=== PATIENT | female | born 2000 | race American Indian/Alaskan Native ===

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

== ENCOUNTER 2018-09-21 14:19 | Outpatient (CLI) | payer OTHER, MEDICAID ==
[2018-09-21 14:32] VITALS: BP 119/63
[2018-09-21] MEDS ORDERED: LACTATED RINGERS 1,000 ML ONE (15:04)
--- NOTE | 2018-09-21 15:16 | Event Note ---
18yo at 35 4/7 weeks be THADDEUS presented to L&D by EMS stating she was feliz and she was a known high risk due to breech presentation. When I arrived her mother confirmed her was complicated only by breech presentation. Her cervix was closed/70/posterior/firm/-3. A bedside sono was done and fetus was noted to be in VERTEX presentation. Ultrasound was reviewed with patient and mother. Ms. Deleon denies any vaginal bleeding or loss of fluid. She has occasional contractions and irritability on toco. She states the pain feels like tightening. Ms Deleon states she was told by Dr. Farias at [facility] that if she was stabilized she could be transferred to [facility] for delivery due to breech presentation. I explained to the patient and her mother that she was being evaluated for labor and if determined not be in labor she would be discharged home with labor precautions. She was given a bolus of fluid, UA sent for evaluation. Her cervix was rechecked in one hour and found to be closed.
[2018-09-21 15:40] LABS: Bacteria,Urine 1+ /HPF (Negative); Bilirubin,Urine NEG (Negative); Blood,Urine NEG (Negative); Color,Urine Yellow (Yellow); Protein,Urine <15 mg/dL mg/dL (Negative); RBC,Urine < 1.0 /HPF (0.0-6.0); Urobilinogen,Urine < 2.0 mg/dL (<2.0)
[2018-09-21 16:13] LABS: Amphetamine Screen,Urine PRESUMPTIVE NEGATIVE; Benzodiazepines Screen,Urine PRESUMPTIVE NEGATIVE; Cocaine Screen,Urine PRESUMPTIVE NEGATIVE; Methadone Screen,Urine PRESUMPTIVE NEGATIVE; Opiate Screen,Urine PRESUMPTIVE NEGATIVE
[2018-09-21 16:38] LABS: Cannabinoid Screen,Urine PRESUMPTIVE POSITIVE
== END 2018-09-21 16:47 | disposition home or self-care (01) ==
LOC: TRG 14:19
PROVIDERS: ATTEND Obstetrics & Gynecology
DX: O62.9 Abnormality of forces of labor, unspecified (principal); O32.1XX0 Maternal care for breech presentation, not applicable or unspecified; Z3A.36 36 weeks gestation of pregnancy
CPT/HCPCS: 80307; 81001; J7120

== ENCOUNTER 2020-04-11 18:23 | Emergency (ER) | payer MEDICAID, OTHER ==
[2020-04-11 18:52] VITALS: BP 141/83
--- NOTE | 2020-04-11 18:54 | Event Note ---
ED Screening Note ED Screening Note: pt presents for periumbilical abd pain began at 4PM today states it feels like intermittent sharp, stabbing +n/v normal BM today never had before no past abdominal surgeries no pmhx no allergies to meds LNMP a week ago This initial assessment/diagnostic orders/clinical plan/treatment(s) is/are subject to change based on patients health status, clinical progression and re- assessment by fellow clinical providers in the ED. Further treatment and workup at subsequent clinical providers discretion. Patient/guardian urged not to elope from the ED as their condition may be serious if not clinically assessed and managed. Initial orders include: labs, UA
[2020-04-11 19:19] LABS: Basophils % (Auto) 0.4 % (0.0-1.8); Eosinophils % (Auto) 0.4 % (0.0-4.3); Hematocrit 36.1 % (30.3-42.9); Hemoglobin 11.5 gm/dl (10.1-14.3); Lymphocytes # (Auto) 2.9 K/mm3 (1.2-5.4); Lymphocytes % (Auto) 45.5 % (13.4-35.0); Mean Corpuscular HGB Conc 32 % (30-34); Mean Corpuscular Volume 80 fl (79-97); Monocytes # (Auto) 0.5 K/mm3 (0.0-0.8); Monocytes % (Auto) 8.4 % (0.0-7.3); Platelet Count 257 K/mm3 (140-440); Red Blood Count 4.53 M/mm3 (3.65-5.03); Red Cell Distribution Width 16.8 % (13.2-15.2)
[2020-04-11 19:39] LABS: Alanine Aminotransferase 14 units/L (7-56); Albumin 4.1 g/dL (3.9-5); BUN/Creatinine Ratio 13; Blood Urea Nitrogen 9 mg/dL (7-17); Calcium 9.4 mg/dL (8.4-10.2); Hemolysis Index 0
[2020-04-11] MEDS ORDERED: MORPHINE 4 MG/1 ML INJ IV ONE (20:10)
[2020-04-11] MEDS ORDERED: ONDANSETRON 4 MG/2 ML INJ IV ONE (20:11)
[2020-04-11] MEDS ORDERED: KETOROLAC 30 MG/1 ML INJ IV ONE (20:11)
[2020-04-11] MEDS ORDERED: PANTOPRAZOLE 40 MG INJ IV ONE (20:11)
--- NOTE | 2020-04-11 20:44 | Cat Scan Report ---
CT abdomen pelvis w con INDICATION / CLINICAL INFORMATION: periumbilical abd pain, n/v. TECHNIQUE: All CT scans at this location are performed using CT dose reduction for ALARA by means of automated e xposure control. COMPARISON: None available. FINDINGS: No free fluid is seen in the abdomen. The liver is enlarged without focal abnormality. The spleen, ki dneys, pancreas, adrenal glands and great vessels are normal. No enlarged mesenteric or retroperitone al lymph nodes are identified. In the pelvis, no free fluid is seen. An umbilical hernia is present containing only fat. No enlarged lymph nodes are identified. The bladder is minimally distended. The appendix is normal. There is scl erosis on both sides of the sacroiliac joints.. IMPRESSION: 1. Small umbilical hernia containing only fat 2. Sclerosis on both sides of the sacroiliac joints 3. Enlarged liver without focal abnormality Signer Name: Boy Short MD FACR Signed: 04/11/2020 8:40 PM Workstation Name: [id number]
[2020-04-11 22:22] LABS: Bilirubin,Urine NEG (Negative); Blood,Urine SM (Negative); Color,Urine Yellow (Yellow); Mucus,Urine 2+ /HPF; Triple Phosphate Crystal,Urine 1+
--- NOTE | 2020-04-11 22:36 | Emergency Department Report ---
ED Abdominal Pain HPI - General Chief Complaint: Abdominal Pain Stated Complaint: VOMIT/STOMACH PAIN Time Seen by Provider: 04/11/20 18:53 Source: patient Mode of arrival: Ambulatory Limitations: No Limitations - History of Present Illness Initial Comments: CC: My stomach hurts." HPI: This is a 20-year-old female with past medical history of headache m igraine, bronchitis who presents with epigastric pain which began shortly after eating barbecue from a restaurant this afternoon. Patient had [employer] for breakfast. She has sharp achy intermittent crampy pain. Moderate in severity. No radiation. She denies fever vomiting diarrhea MD Complaint: abdominal pain -: Gradual, hour(s) (4 hours since 4 PM) Location: epigastric Radiation: none Migration to: no migration Severity: moderate Severity scale (0 -10): 10 Quality: cramping, aching Consistency: intermittent Improves With: nothing Worsens With: nothing Context: possible food poisoning Associated Symptoms: denies other symptoms - Related Data Previous Rx's Medication Instructions Recorded Last Taken Type Butalb/Acetaminophen/Caffeine 1 cap PO Q8HR PRN #20 cap 11/06/15 Unknown Rx [Fioricet 50-300-40 mg CAP] Ibuprofen [Motrin 600 MG tab] 600 mg PO Q8H PRN #30 tablet 11/11/15 Unknown Rx Naproxen [Naprosyn TAB] 500 mg PO BID PRN #30 tablet 09/24/16 Unknown Rx cephALEXin [Keflex] 500 mg PO Q8HR #30 cap 09/24/16 Unknown Rx Doxycycline Monohydrate 100 mg PO BID 7 Days #14 tablet 05/01/17 Unknown Rx HYDROcodone/APAP 5-325 [[place] 1 each PO Q8H PRN #8 tablet 08/07/17 Unknown Rx 5/325] Ibuprofen 800 mg PO TID PRN #30 tablet 09/04/17 Unknown Rx Nitrofurantoin Macrocrystal 100 mg PO BID #14 capsule 09/04/17 Unknown Rx [Macrodantin] Ondansetron [Zofran TAB] 4 mg PO Q8HR PRN #6 tablet 09/04/17 Unknown Rx Acetaminophen 500 mg PO Q8H PRN #20 tablet 02/26/18 Unknown Rx 21/Iron Fu/Folic Acid 1 each PO DAILY #30 tablet 02/26/18 Unknown Rx [ Complete Caplet] Promethazine [Phenergan] 25 mg PO Q6HR PRN #10 tab 04/11/20 Unknown Rx Allergies Allergy/AdvReac Type Severity Reaction Status Date / Time No Known Allergies Allergy Verified 09/24/16 14:15 ED Review of Systems ROS: Stated complaint: VOMIT/STOMACH PAIN Other details as noted in HPI Comment: All other systems reviewed and negative Constitutional: denies: fever, malaise Respiratory: denies: cough, shortness of breath Gastrointestinal: abdominal pain. denies: nausea, vomiting, diarrhea ED Past Medical Hx - Past Medical History Previous Medical History?: Yes Hx Hypertension: No Hx Diabetes: No Hx Deep Vein Thrombosis: No Hx Renal Disease: No Hx Sickle Cell Disease: No Hx Headaches / Migraines: Yes Hx Seizures: No Hx Asthma: No Hx HIV: No Additional medical history: bronchitis, ankle break l - Surgical History Past Surgical History?: No - Social History Smoking Status: Never Smoker Substance Use Type: Alcohol - Medications Home Medications: Home Medications Medication Instructions Recorded Confirmed Last Taken Type Butalb/Acetaminophen/Caffeine 1 cap PO Q8HR PRN #20 cap 11/06/15 Unknown Rx [Fioricet 50-300-40 mg CAP] Ibuprofen [Motrin 600 MG tab] 600 mg PO Q8H PRN #30 tablet 11/11/15 Unknown Rx Naproxen [Naprosyn TAB] 500 mg PO BID PRN #30 tablet 09/24/16 Unknown Rx cephALEXin [Keflex] 500 mg PO Q8HR #30 cap 09/24/16 Unknown Rx Doxycycline Monohydrate 100 mg PO BID 7 Days #14 tablet 05/01/17 Unknown Rx HYDROcodone/APAP 5-325 [[place] 1 each PO Q8H PRN #8 tablet 08/07/17 Unknown Rx 5/325] Ibuprofen 800 mg PO TID PRN #30 tablet 09/04/17 Unknown Rx Nitrofurantoin Macrocrystal 100 mg PO BID #14 capsule 09/04/17 Unknown Rx [Macrodantin] Ondansetron [Zofran TAB] 4 mg PO Q8HR PRN #6 tablet 09/04/17 Unknown Rx Acetaminophen 500 mg PO Q8H PRN #20 tablet 02/26/18 Unknown Rx 21/Iron Fu/Folic Acid 1 each PO DAILY #30 tablet 12/17/18 Unknown Rx [ Complete Caplet] Promethazine [Phenergan] 25 mg PO Q6HR PRN #10 tab 04/11/20 Unknown Rx ED Physical Exam - General Limitations: No Limitations General appearance: alert, in no apparent distress - Head Head exam: Present: atraumatic, normocephalic - Eye Eye exam: Present: normal appearance - ENT ENT exam: Present: mucous membranes moist - Neck Neck exam: Present: normal inspection, full ROM - Respiratory Respiratory exam: Present: normal lung sounds bilaterally. Absent: respiratory distress, wheezes, rales, rhonchi - Cardiovascular Cardiovascular Exam: Present: regular rate, normal rhythm, normal heart sounds. Absent: systolic murmur, diastolic murmur, rubs, gallop - GI/Abdominal GI/Abdominal exam: Present: soft, normal bowel sounds. Absent: distended, tenderness, guarding, rebound - Extremities Exam Extremities exam: Present: normal inspection - Back Exam Back exam: Present: normal inspection - Neurological Exam Neurological exam: Present: alert, oriented X3 - Psychiatric Psychiatric exam: Present: normal affect, normal mood - Skin Skin exam: Present: warm, dry, intact, normal color. Absent: rash ED Course Vital Signs 04/11/20 18:46 Temperature 98.9 F Pulse Rate 88 Respiratory 18 Rate Blood Pressure 141/83 O2 Sat by Pulse 98 Oximetry ED Medical Decision Making - Lab Data Result diagrams: 04/11/20 18:56 04/11/20 18:56 Laboratory Results - last 24 hr 04/11/20 04/11/20 04/11/20 18:56 18:56 18:56 WBC 6.4 RBC 4.53 Hgb 11.5 Hct 36.1 MCV 80 MCH 26 L MCHC 32 RDW 16.8 H Plt Count 257 Lymph % (Auto) 45.5 H [place] % (Auto) 8.4 H Eos % (Auto) 0.4 Baso % (Auto) 0.4 Lymph # (Auto) 2.9 [place] # (Auto) 0.5 Eos # (Auto) 0.0 Baso # (Auto) 0.0 Seg Neutrophils % 45.3 Seg Neutrophils # 2.9 Sodium 138 Potassium 4.3 Chloride 103.3 Carbon Dioxide 26 Anion Gap 13 BUN 9 Creatinine 0.7 Estimated GFR > 60 BUN/Creatinine Ratio 13 Glucose 98 Calcium 9.4 Total Bilirubin < 0.20 AST 15 ALT 14 Alkaline Phosphatase 80 Total Protein 6.7 Albumin 4.1 Albumin/Globulin Ratio 1.6 Lipase 21 HCG, Qual Negative Urine Color Urine Turbidity Urine pH Ur Specific [place] Urine Protein Urine Glucose (UA) Urine Ketones Urine Blood Urine Nitrite Urine Bilirubin Urine Urobilinogen Ur Leukocyte Esterase Urine WBC (Auto) Urine RBC (Auto) U Epithel Cells (Auto) Triple Phos Crystals Urine Mucus 04/11/20 21:46 WBC RBC Hgb Hct MCV MCH MCHC RDW Plt Count Lymph % (Auto) [place] % (Auto) Eos % (Auto) Baso % (Auto) Lymph # (Auto) [place] # (Auto) Eos # (Auto) Baso # (Auto) Seg Neutrophils % Seg Neutrophils # Sodium Potassium Chloride Carbon Dioxide Anion Gap BUN Creatinine Estimated GFR BUN/Creatinine Ratio Glucose Calcium Total Bilirubin AST ALT Alkaline Phosphatase Total Protein Albumin Albumin/Globulin Ratio Lipase HCG, Qual Urine Color Yellow Urine Turbidity Cloudy Urine pH 8.0 H Ur Specific [place] 1.054 H Urine Protein 100 mg/dl Urine Glucose (UA) Neg Urine Ketones Neg Urine Blood Sm Urine Nitrite Neg Urine Bilirubin Neg Urine Urobilinogen 2.0 Ur Leukocyte Esterase Tr Urine WBC (Auto) 14.0 H Urine RBC (Auto) 10.0 U Epithel Cells (Auto) 47.0 H Triple Phos Crystals 1+ Urine Mucus 2+ - Radiology Data Radiology results: report reviewed CT abdomen pelvis: No acute process - Medical Decision Making Abdominal pain epigastric after eating restaurant food. Suspect food poisoning. No evidence of acute inflammatory process according to CT scan. No fever or a bdominal tenderness. Normal WBC. Urine test negative. Contaminated urine sample with obvious infection. Patient prescribed promethazine. She understands anticipate vomiting and/or diarrhea.. She is discharged home in stable condition. Critical care attestation.: If time is entered above; I have spent that time in minutes in the direct care of this critically ill patient, excluding procedure time. ED Disposition Clinical Impression: Abdominal pain, Food poisoning Disposition: TO HOME OR SELFCARE Is pt being admited?: No Does the pt Need Aspirin: No Instructions: Food Poisoning, Abdominal Pain, Adult, [id number], Abdominal Pain (ED) Prescriptions: Promethazine [Phenergan] 25 mg PO Q6HR PRN #10 tab PRN Reason: Nausea Referrals: JACINTA GALLARDO MD [Staff Physician] - as needed Forms: Work/School Release Form(ED)
== END 2020-04-11 23:20 | disposition home or self-care (01) ==
LOC: ED 18:23
DX: A05.9 Bacterial foodborne intoxication, unspecified (principal); G43.909 Migraine, unspecified, not intractable, without status migrainosus; Z79.899 Other long term (current) drug therapy
CPT/HCPCS: 36415; 74177; 80053; 81001; 83690; 84703; 85025; 87086; 96374; 96375; 99284; C9113; J1885; J2270; J2405; Q9967

== ENCOUNTER 2020-06-27 14:28 | Emergency (ER) | payer OTHER, SELFPAY ==
[2020-06-27 15:46] VITALS: BP 139/79
[2020-06-27] MEDS ORDERED: ONDANSETRON 4 MG ODT TAB PO ONE (15:46)
[2020-06-27] MEDS ORDERED: ACETAMINOPHEN 325 MG TAB PO ONE (15:46)
[2020-06-27] MEDS ORDERED: ALBUTEROL 2.5 MG/3 ML NEBU IH ONE (15:56)
[2020-06-27] MEDS ORDERED: dexAMETHasone 20 MG/5 ML VIAL IM ONE (15:56)
[2020-06-27] MEDS ORDERED: IPRATROPIUM 0.02% NEBU 2.5 ML IH ONE (15:56)
--- NOTE | 2020-06-27 15:59 | Emergency Department Report ---
ED General Adult HPI - General Chief complaint: Upper Respiratory Infection Stated complaint: COVID SYPTOMS Time Seen by Provider: 06/27/20 15:45 Source: patient Mode of arrival: Ambulatory Limitations: No Limitations - History of Present Illness Initial comments: 20-year-old -Spanish female patient presents with complaints of generalized body aches, cough, shortness of breath, fatigue, and single episode of vomiting starting yesterday. No abdominal pain or urinary symptoms per patient she is unsure of a fever, however states chills. No past medical history per patient. She does have loss of taste and denies any recent known sick contacts. Patient also states tightness in the chest but denies history of asthma Severity scale (0 -10): 0 - Related Data Previous Rx's Medication Instructions Recorded Last Taken Type Butalb/Acetaminophen/Caffeine 1 cap PO Q8HR PRN #20 cap 11/06/15 Unknown Rx [Fioricet 50-300-40 mg CAP] Ibuprofen [Motrin 600 MG tab] 600 mg PO Q8H PRN #30 tablet 11/11/15 Unknown Rx Naproxen [Naprosyn TAB] 500 mg PO BID PRN #30 tablet 09/24/16 Unknown Rx cephALEXin [Keflex] 500 mg PO Q8HR #30 cap 09/24/16 Unknown Rx Doxycycline Monohydrate 100 mg PO BID 7 Days #14 tablet 05/01/17 Unknown Rx HYDROcodone/APAP 5-325 [[place] 1 each PO Q8H PRN #8 tablet 08/07/17 Unknown Rx 5/325] Ibuprofen 800 mg PO TID PRN #30 tablet 09/04/17 Unknown Rx Nitrofurantoin Macrocrystal 100 mg PO BID #14 capsule 09/04/17 Unknown Rx [Macrodantin] Ondansetron [Zofran TAB] 4 mg PO Q8HR PRN #6 tablet 09/04/17 Unknown Rx Acetaminophen 500 mg PO Q8H PRN #20 tablet 02/26/18 Unknown Rx 21/Iron Fu/Folic Acid 1 each PO DAILY #30 tablet 02/26/18 Unknown Rx [ Complete Caplet] Promethazine [Phenergan] 25 mg PO Q6HR PRN #10 tab 04/11/20 Unknown Rx Acetaminophen [Mapap] 1,000 mg PO QID #30 capsule 06/27/20 Unknown Rx Albuterol Sulfate [Proventil Hfa] 6.7 gm IH Q4H PRN #1 hfa.aer.ad 06/27/20 Unknown Rx Ondansetron [Zofran Odt] 4 mg PO Q8HR PRN #12 tab.rapdis 06/27/20 Unknown Rx Prednisone [predniSONE 10 mg 10 mg PO .TAPER #1 tab.ds.pk 06/27/20 Unknown Rx (6-Day Pack, 21 Tabs)] Allergies Allergy/AdvReac Type Severity Reaction Status Date / Time No Known Allergies Allergy Verified 06/27/20 15:46 ED Review of Systems ROS: Stated complaint: COVID SYPTOMS Other details as noted in HPI Constitutional: chills, malaise. denies: diaphoresis, weakness ENT: denies: ear pain, throat pain Respiratory: cough, shortness of breath Endocrine: denies: see HPI Gastrointestinal: nausea, vomiting. denies: abdominal pain, diarrhea, constipation, hematemesis, melena, hematochezia Genitourinary: denies: urgency, dysuria, frequency, hematuria, discharge Skin: denies: rash, change in color Neurological: denies: headache Hematological/Lymphatic: denies: swollen glands ED Past Medical Hx - Past Medical History Previous Medical History?: No Hx Hypertension: No Hx Diabetes: No Hx Deep Vein Thrombosis: No Hx Renal Disease: No Hx Sickle Cell Disease: No Hx Headaches / Migraines: Yes Hx Seizures: No Hx Asthma: No Hx HIV: No Additional medical history: bronchitis, ankle break l - Social History Smoking Status: Never Smoker Substance Use Type: None - Medications Home Medications: Home Medications Medication Instructions Recorded Confirmed Last Taken Type Butalb/Acetaminophen/Caffeine 1 cap PO Q8HR PRN #20 cap 11/06/15 Unknown Rx [Fioricet 50-300-40 mg CAP] Ibuprofen [Motrin 600 MG tab] 600 mg PO Q8H PRN #30 tablet 11/11/15 Unknown Rx Naproxen [Naprosyn TAB] 500 mg PO BID PRN #30 tablet 09/24/16 Unknown Rx cephALEXin [Keflex] 500 mg PO Q8HR #30 cap 09/24/16 Unknown Rx Doxycycline Monohydrate 100 mg PO BID 7 Days #14 tablet 05/01/17 Unknown Rx HYDROcodone/APAP 5-325 [[place] 1 each PO Q8H PRN #8 tablet 08/07/17 Unknown Rx 5/325] Ibuprofen 800 mg PO TID PRN #30 tablet 09/04/17 Unknown Rx Nitrofurantoin Macrocrystal 100 mg PO BID #14 capsule 09/04/17 Unknown Rx [Macrodantin] Ondansetron [Zofran TAB] 4 mg PO Q8HR PRN #6 tablet 09/04/17 Unknown Rx Acetaminophen 500 mg PO Q8H PRN #20 tablet 02/26/18 Unknown Rx 21/Iron Fu/Folic Acid 1 each PO DAILY #30 tablet 02/26/18 Unknown Rx [ Complete Caplet] Promethazine [Phenergan] 25 mg PO Q6HR PRN #10 tab 04/11/20 Unknown Rx Acetaminophen [Mapap] 1,000 mg PO QID #30 capsule 06/27/20 Unknown Rx Albuterol Sulfate [Proventil Hfa] 6.7 gm IH Q4H PRN #1 hfa.aer.ad 06/27/20 Unknown Rx Ondansetron [Zofran Odt] 4 mg PO Q8HR PRN #12 tab.rapdis 06/27/20 Unknown Rx Prednisone [predniSONE 10 mg 10 mg PO .TAPER #1 tab.ds.pk 06/27/20 Unknown Rx (6-Day Pack, 21 Tabs)] ED Physical Exam - General Limitations: No Limitations General appearance: alert, in no apparent distress, obese - Head Head exam: Present: atraumatic, normocephalic - Eye Eye exam: Present: normal appearance. Absent: scleral icterus - Neck Neck exam: Present: normal inspection, full ROM. Absent: lymphadenopathy - Respiratory Respiratory exam: Present: decreased breath sounds (Diffuse). Absent: respiratory distress, wheezes, rales - Cardiovascular Cardiovascular Exam: Present: tachycardia (Mild) - GI/Abdominal GI/Abdominal exam: Present: soft, normal bowel sounds. Absent: distended, tenderness, guarding, rebound, rigid - Neurological Exam Neurological exam: Present: alert, oriented X3, normal gait - Psychiatric Psychiatric exam: Present: normal affect, normal mood - Skin Skin exam: Present: warm, dry, intact, normal color. Absent: rash, cyanosis, diaphoretic, erythema, ecchymosis ED Course Vital Signs 06/27/20 06/27/20 14:42 17:22 Temperature 99.8 F H Pulse Rate 105 H Pulse Rate [ 103 H Anterior Bilateral Throughout] Respiratory 24 Rate Respiratory 18 Rate [Anterior Bilateral Throughout] Blood Pressure 139/79 O2 Sat by Pulse 99 Oximetry ED Medical Decision Making - Radiology Data Radiology results: report reviewed CHEST 2 VIEWS INDICATION / CLINICAL INFORMATION: cough, SOB. COMPARISON: None available. FINDINGS: SUPPORT DEVICES: None. HEART / MEDIASTINUM: No significant abnormality. LUNGS / PLEURA: No significant pulmonary or pleural abnormality. No pneumothorax. ADDITIONAL FINDINGS: No significant additional findings. IMPRESSION: 1. No acute cardiopulmonary abnormality. - Medical Decision Making 20-year-old -Spanish female patient presents with complaints of generalized body aches, cough, shortness of breath, fatigue, and single episode of vomiting starting yesterday. No abdominal pain or urinary symptoms per patient she is unsure of a fever, however states chills. No past medical history per patient. She does have loss of taste and denies any recent known sick contacts. Patient also states tightness in the chest but denies history of asthma Chest x-ray is negative for any acute abnormalities. Patient given our wall DuoNeb. Improved breath sounds diffusely post neb treatment. Patient also states she is no longer feeling short of breath after the neb treatment and Decadron. Pulse ox remains 97% on room air. Heart rate now 99. Urged patient to get outpatient Covid testing-testing facility list provided to patient. Also informed patient to self quarantine for the next 14 days. She is well- appearing, tolerating fluids orally, and her vitals are normal. Patient is stable for discharge home. Discussed very strict return precautions in great detail with patient who verbalizes understanding. Patient to follow-up with PCP in 3 to 5 days. Critical care attestation.: If time is entered above; I have spent that time in minutes in the direct care of this critically ill patient, excluding procedure time. ED Disposition Clinical Impression: Person under investigation for COVID-19 Disposition: [id number] TO HOME OR SELFCARE Is pt being admited?: No Condition: Stable Instructions: COVID-19, Acute Bronchitis, Adult, [id number], Prevent the Spread of COVID-19 if You Are Sick - [facility] Prescriptions: Acetaminophen [Mapap] 1,000 mg PO QID #30 capsule Prednisone [predniSONE 10 mg (6-Day Pack, 21 Tabs)] 10 mg PO .TAPER #1 tab.ds.pk Albuterol Sulfate [Proventil Hfa] 6.7 gm IH Q4H PRN #1 hfa.aer.ad PRN Reason: Shortness Of Breath Ondansetron [Zofran Odt] 4 mg PO Q8HR PRN #12 tab.rapdis PRN Reason: Nausea Referrals: PRIMARY CARE, [Primary Care Provider] - 3-5 Days Forms: Work/School Release Form(ED)
--- NOTE | 2020-06-27 16:31 | XRay Report ---
CHEST 2 VIEWS INDICATION / CLINICAL INFORMATION: cough, SOB. COMPARISON: None available. FINDINGS: SUPPORT DEVICES: None. HEART / MEDIASTINUM: No significant abnormality. LUNGS / PLEURA: No significant pulmonary or pleural abnormality. No pneumothorax. ADDITIONAL FINDINGS: No significant additional findings. IMPRESSION: 1. No acute cardiopulmonary abnormality. Signer Name: Alfredo Short MD Signed: 06/27/2020 4:27 PM Workstation Name: [id number]
== END 2020-06-27 18:52 | disposition home or self-care (01) ==
LOC: ED 14:28
DX: R06.02 Shortness of breath (principal); R53.83 Other fatigue; R05 Cough; G43.909 Migraine, unspecified, not intractable, without status migrainosus; Z79.899 Other long term (current) drug therapy; Z20.822 Contact with and (suspected) exposure to COVID-19
CPT/HCPCS: 71046; 94640; 96372; 99283; J1100; 94644; Q0162